=== PATIENT | female | born 1970 | race Caucasian/White ===

== ENCOUNTER 2024-02-02 06:21 | Day surgery (SDC) | payer OTHER ==
[~2024-02-02] VITALS: Ht 154.9 cm; Wt 99.8 kg
[~2024-02-02 06:21] MED LIST: ADDERALL XR15 MG PO
[2024-02-02] MEDS ORDERED: LACTATED RINGER'S 1,000 ML IV ONE (06:42)
[2024-02-02] MEDS ORDERED: STERILE WATER FOR IRRIGATION 1,000 ML BTL IR ONE (07:14)
[2024-02-02 08:19] VITALS: BP 137/94
[2024-02-02] MEDS ORDERED: LIDOCAINE HCL 2% 2ML SDV IV ONE (12:41)
[2024-02-02] MEDS ORDERED: PROPOFOL 200 MG/20 ML VIAL IV ONE (12:41)
[2024-02-02] MEDS ORDERED: GLYCOPYRROLATE 0.2 MG/ML IV ONE (12:41)
== END 2024-02-02 08:35 | disposition home or self-care (01) ==
LOC: ENDO 06:21
PROVIDERS: ATTEND Internal Medicine Gastroenterology
DX: Z12.11 Encounter for screening for malignant neoplasm of colon (principal); K63.5 Polyp of colon; K62.1 Rectal polyp; K64.8 Other hemorrhoids; Z87.891 Personal history of nicotine dependence